=== PATIENT | male | born 1965 | race Caucasian/White ===

== ENCOUNTER 2018-07-26 20:07 | Emergency (ER) | payer BC ==
[2018-07-26] MEDS ORDERED: SODIUM CHLORIDE 0.9% 1,000 ML IV STA (20:52)
--- NOTE | 2018-07-26 20:55 | ED ---
Abdominal Pain HPI - General Chief Complaint: Abdominal Pain Stated Complaint: side pain Time Seen by Provider: 07/26/18 20:47 Source: patient Mode of arrival: ambulatory Limitations: no limitations - History of Present Illness Initial Comments: 53-year-old male patient presents to the emergency department today for evaluation of left lower quadrant abdominal pain. Patient describes the pain as a pressure, squeezing type pain. Patient states he had a small episode of the pain yesterday and then a return today around 5 PM. Patient states that the pain lasted for several hours a presented here for further evaluation. Patient states that the pain is now resolved. States he has been urinating without difficulty denies any hematuria, dysuria, urinary frequency, urinary urgency. Denies any radiation of the pain into his groin or testicles. Denies any constipation or diarrhea. Denies any hematochezia or melena. Denies any fevers or chills. Patient denies any recent rash, shortness breath, chest pain, abdominal pain, nausea, vomiting, back pain, numbness, tingling, dizziness, weakness, headache, visual changes, or any other complaints. - Related Data Home Medications Medication Instructions Recorded Confirmed Aspirin/Calcium Carbonate/Mag 325 mg PO BID PRN 07/26/18 07/26/18 [Bufferin 325 mg Tablet] Previous Rx's Medication Instructions Recorded Hydrocodone/Acetaminophen [[place] 1 tab PO Q6HR PRN #12 tab 07/27/18 5-325] Ibuprofen [Motrin] 600 mg PO Q8HR PRN #30 tab 07/27/18 Tamsulosin HCl [Flomax] 0.4 mg PO DAILY #7 cap 07/27/18 Allergies Allergy/AdvReac Type Severity Reaction Status Date / Time No Known Allergies Allergy Verified 07/26/18 20:33 Review of Systems ROS Statement: Those systems with pertinent positive or pertinent negative responses have been documented in the HPI. ROS Other: All systems not noted in ROS Statement are negative. Past Medical History Past Medical History: No Reported History History of Any Multi-Drug Resistant Organisms: None Reported Past Surgical History: No Surgical Hx Reported Past Psychological History: No Psychological Hx Reported Smoking Status: Never smoker Past Alcohol Use History: None Reported Past Drug Use History: None Reported General Exam Limitations: no limitations General appearance: alert, in no apparent distress, other (This is a well- developed, well-nourished adult male patient in no acute distress. Vital signs upon presentation are temperature 98.5F, pulse 84, respirations 18, blood pressure 170/100, pulse ox 95% on room air.) Eye exam: Present: normal appearance, PERRL, EOMI. Absent: scleral icterus, conjunctival injection, periorbital swelling ENT exam: Present: normal exam, normal oropharynx, mucous membranes moist Respiratory exam: Present: normal lung sounds bilaterally. Absent: respiratory distress, wheezes, rales, rhonchi, stridor Cardiovascular Exam: Present: regular rate, normal rhythm, normal heart sounds. Absent: systolic murmur, diastolic murmur, rubs, gallop, clicks GI/Abdominal exam: Present: soft, normal bowel sounds. Absent: distended, tenderness, guarding, rebound, rigid Back exam: Present: normal inspection. Absent: CVA tenderness (R), CVA tenderness (L) Neurological exam: Present: alert, oriented X3, CN II-XII intact Psychiatric exam: Present: normal affect, normal mood Skin exam: Present: warm, dry, intact, normal color. Absent: rash Course Vital Signs 07/26/18 07/27/18 20:21 00:22 Temperature 98.5 F 97.6 F Pulse Rate 84 71 Respiratory 18 16 Rate Blood Pressure 170/100 152/98 O2 Sat by Pulse 95 98 Oximetry Medical Decision Making - Medical Decision Making 53-year-old male patient presented to the emergency department today for evaluation of intermittent left-sided abdominal pain. Physical examination is relatively unremarkable. Abdomen was soft and nontender. Patient no flank tenderness. Labs reviewed and did reveal blood in the urine so I did proceed with CT abdomen and pelvis without contrast. There was evidence of a 4 mm obstructing renal stone on the left side. There is some mild hydronephrosis and hydroureter. There is also evidence of a 3 mm left lower lobe nodule and inguinal lymphadenopathy. Patient is informed of these other results and instructed follow-up with his primary care physician for further evaluation. Patient was given Flomax, pain management for management of his kidney stone. He is instructed to strain urine. He is instructed to follow-up with urology for further evaluation. Return parameters were discussed in detail. He verbalizes understanding and agrees with this plan - Lab Data Result diagrams: 07/26/18 21:10 08/28/18 21:10 Lab Results 07/26/18 07/26/18 07/26/18 Range/Units 21:10 21:10 21:10 WBC 10.4 (3.8-10.6) k/uL RBC 4.98 (4.30-5.90) m/uL Hgb 14.7 (13.0-17.5) gm/dL Hct 45.5 (39.0-53.0) % MCV 91.4 (80.0-100.0) fL MCH 29.5 (25.0-35.0) pg MCHC 32.2 (31.0-37.0) g/dL RDW 13.0 (11.5-15.5) % Plt Count 218 (150-450) k/uL Neutrophils % 84 % Lymphocytes % 9 % Monocytes % 6 % Eosinophils % 1 % Basophils % 0 % Neutrophils # 8.7 H (1.3-7.7) k/uL Lymphocytes # 1.0 (1.0-4.8) k/uL Monocytes # 0.6 (0-1.0) k/uL Eosinophils # 0.1 (0-0.7) k/uL Basophils # 0.0 (0-0.2) k/uL Sodium 140 (137-145) mmol/L Potassium 4.3 (3.5-5.1) mmol/L Chloride 108 H (98-107) mmol/L Carbon Dioxide 26 (22-30) mmol/L Anion Gap 6 mmol/L BUN 22 H (9-20) mg/dL Creatinine 0.80 (0.66-1.25) mg/dL Est GFR (CKD-EPI)AfAm >90 (>60 ml/min/1.73 sqM) Est GFR (CKD-EPI)NonAf >90 (>60 ml/min/1.73 sqM) Glucose 115 H (74-99) mg/dL Calcium 9.9 (8.4-10.2) mg/dL Total Bilirubin 0.3 (0.2-1.3) mg/dL AST 23 (17-59) U/L ALT 28 (21-72) U/L Alkaline Phosphatase 55 (38-126) U/L Total Protein 7.1 (6.3-8.2) g/dL Albumin 4.1 (3.5-5.0) g/dL Amylase 58 (30-110) U/L Lipase 104 (23-300) U/L Urine Color Yellow Urine Appearance Clear (Clear) Urine pH 5.0 (5.0-8.0) Ur Specific [place] 1.021 (1.001-1.035) Urine Protein Trace H (Negative) Urine Glucose (UA) 2+ H (Negative) Urine Ketones Negative (Negative) Urine Blood Large H (Negative) Urine Nitrite Negative (Negative) Urine Bilirubin Negative (Negative) Urine Urobilinogen <2.0 (<2.0) mg/dL Ur Leukocyte Esterase Negative (Negative) Urine RBC 55 H (0-5) /hpf Urine WBC 2 (0-5) /hpf Urine Bacteria Rare H (None) /hpf Hyaline Casts 1 (0-2) /lpf Urine Mucus Rare H (None) /hpf - Radiology Data Radiology results: report reviewed, image reviewed KUB x-ray of the abdomen was obtained. Report was reviewed in its entirety. Impression by Dr. Jonas shows some moderate stool in the right side of the abdomen. Nonobstructive bowel gas pattern. No free air. CT abdomen and pelvis without contrast was obtained. Report was reviewed in its entirety. Impression by Dr. Reyna shows approximate 4 mm distal left ureteral calculus just above the level of the left ureterovesical junction with evidence of left obstructive uropathy and mild hydronephrosis. Multiple small nonobstructing bilateral renal calculi. Evidence of right inguinal lymphadenopathy. Left anterior pelvic soft tissue density which may reflect postsurgical changes are possible mild left external iliac lymphadenopathy. Hepatic fatty infiltration. 3 mm left lower lobe nodule partially imaged. Follow-up nonemergent CT chest recommended for further evaluation. Disposition Clinical Impression: Kidney stone on left side, Inguinal lymphadenopathy, Pulmonary nodule Disposition: HOME SELF-CARE Condition: Good Instructions: Kidney Stones (ED), Lymphadenopathy (ED), How to Strain Your Urine (ED), Pulmonary Nodules (ED) Additional Instructions: Take medications as directed. Follow-up with urologist for further evaluation. Follow up with her primary care physician for recheck in 1-2 days. Return here immediately for any new, worsening, or concerning symptoms. Prescriptions: Hydrocodone/Acetaminophen [[place] 5-325] 1 tab PO Q6HR PRN #12 tab PRN Reason: Pain Ibuprofen [Motrin] 600 mg PO Q8HR PRN #30 tab PRN Reason: Pain Tamsulosin HCl [Flomax] 0.4 mg PO DAILY #7 cap Is patient prescribed a controlled substance at d/c from ED?: No Referrals: None,Stated [Primary Care Provider] - 1-2 days Time of Disposition: 00:04
[2018-07-26 21:26] LABS: Basophils % (A) 0 %; Eosinophils # (A) 0.1 k/uL (0-0.7); Eosinophils % (A) 1 %; HCT 45.5 % (39.0-53.0); HGB 14.7 gm/dL (13.0-17.5); Lymphocytes % (A) 9 %; MCH 29.5 pg (25.0-35.0); MCHC 32.2 g/dL (31.0-37.0); MCV 91.4 fL (80.0-100.0); Mean Platelet Volume 6.1; Monocytes # (A) 0.6 k/uL (0-1.0); Monocytes % (A) 6 %; Neutrophils # (A) 8.7 k/uL (1.3-7.7); Neutrophils % (A) 84 %; Platelet Count 218 k/uL (150-450); RBC 4.98 m/uL (4.30-5.90); WBC 10.4 k/uL (3.8-10.6)
[2018-07-26 21:28] LABS: Appearance,Urine Clear (Clear); Bacteria,Urine Rare /hpf; Bilirubin,Urine Negative (Negative); Blood,Urine Large (Negative); Color,Urine Yellow; Glucose,Urine (UA) 2+ (Negative); Hyaline Casts,Urine 1 /lpf (0-2); Ketones,Urine Negative (Negative); Leukocyte Esterase,Urine Negative (Negative); Mucus,Urine Rare /hpf; Nitrite,Urine Negative (Negative); Protein,Urine Trace (Negative); RBC,Urine 55 /hpf (0-5); Specific Gravity,Urine 1.021 (1.001-1.035); Urobilinogen,Urine <2.0 mg/dL (<2.0); WBC,Urine 2 /hpf (0-5)
--- NOTE | 2018-07-26 21:34 | XR ---
EXAMINATION TYPE: XR KUB DATE OF EXAM: 07/26/2018 CLINICAL DATA: 53-year-old male with lower abdominal pain, PHH COMPARISON: None FINDINGS: Lung bases are clear. No evidence for free intraperitoneal air. No dilated small bowel or air-fluid levels. Scattered air and stool seen throughout the colon extendi ng distally into the rectum. Moderate stool in the right side of the abdomen. Multiple pelvic phleboliths. IMPRESSION: Moderate stool in the right side of the abdomen. Nonobstructive bowel gas pattern. No free air.
[2018-07-26 21:42] LABS: ALT 28 U/L (21-72); AST 23 U/L (17-59); Albumin 4.1 g/dL (3.5-5.0); Alkaline Phosphatase 55 U/L (38-126); Amylase 58 U/L (30-110); Anion Gap 6 mmol/L; Blood Urea Nitrogen 22 mg/dL (9-20); Calcium 9.9 mg/dL (8.4-10.2); Carbon Dioxide 26 mmol/L (22-30); Chloride 108 mmol/L (98-107); Glucose 115 mg/dL (74-99); Lipase 104 U/L (23-300); Potassium 4.3 mmol/L (3.5-5.1); Sodium 140 mmol/L (137-145); Total Bilirubin 0.3 mg/dL (0.2-1.3); Total Protein 7.1 g/dL (6.3-8.2)
--- NOTE | 2018-07-26 23:33 | CT ---
EXAM: CT Abdomen and Pelvis Without Intravenous Contrast CLINICAL HISTORY: Reason: Pain TECHNIQUE: Axial computed tomography images of the abdomen and pelvis without intravenous contrast. CTDI is 14.2 mGy and DLP is 731 mGy-cm. This CT exam was performed using one or more of the following dose reduction techniques: automated exposure control, adjustment of the mA and/or kV according to patient size, and/or use of iterative reconstruction technique. COMPARISON: None available FINDINGS: Lung bases: 3 mm left lower lobe pulmonary nodule partially imaged in the hemithorax. ABDOMEN: Liver: Mild hepatic fatty infiltration. Gallbladder and bile ducts: No radiopaque gallstones. Pancreas: Pancreas is unremarkable. Spleen: Spleen is unremarkable. Adrenals: No adrenal masses. Kidneys and ureters: Kidneys are of normal size bilaterally. Multiple small nonobstructing bilateral renal calculi. Left perinephric and mild periureteral stranding. Mild left hydronephrosis and hydroureter with evidence of approximately 4 mm distal left ureteral calculus identified just above level of left ureterovesical junction. Stomach and bowel: Stomach is nondistended limiting gastric evaluation. No evidence of bowel obstruction or pneumoperitoneum. Scattered colonic diverticulosis. PELVIS: Appendix: Normal-appearing appendix identified in the right lower quadrant at level of upper pelvis. Bladder: Urinary bladder is unremarkable. No bladder calculi. Reproductive: Unremarkable as visualized. ABDOMEN and PELVIS: Intraperitoneal space: See above. Bones/joints: Prominent hypertrophic degenerative changes involving the lower thoracic and lumbar spine. Moderate T10 and T11 vertebral compression fractures which are of indeterminate age but have probably chronic appearance. No dislocation. Soft tissues: Very small fat-containing umbilical hernia. Small focal soft tissue density with mild stranding identified anterior to the left external iliac vessels measuring approximately 1.7 x 2.7 cm which may reflect post surgical changes related to prior hernia repair or possible mild external iliac lymphadenopathy. Evidence of right inguinal lymphadenopathy with partially imaged enlarged right inguinal lymph node measuring 2.5 x 3.6 cm. Vasculature: No abdominal aortic aneurysm. Lymph nodes: See above. IMPRESSION: Approximately 4 mm distal left ureteral calculus just above level of left ureterovesical junction with evidence of left obstructive uropathy and mild hydronephrosis. Multiple small nonobstructing bilateral renal calculi. Evidence of right inguinal lymphadenopathy. Left anterior pelvic soft tissue density which may reflect postsurgical changes or possible mild left external iliac lymphadenopathy. Hepatic fatty infiltration. 3 mm left lower lobe a nodule partially imaged. Follow-up nonemergent CT chest recommended for further evaluation. [employer] 07/26/18 23:47 Verify Receipt Verified receipt with DONOVAN SCRUGGS in the ER for BYRON RÍOS on 07/26 23:47 (-04:00)
[2018-07-26] MEDS ORDERED: TAMSULOSIN 0.4 MG CAP.ER.24H PO STA (23:59)
[2018-07-27] MEDS ORDERED: ACET/COD 300 MG/30 MG STARTER PACK 6 TAB BTL PO STA
[2018-07-27] MEDS ORDERED: IBUPROFEN 600 MG STARTER PACK 4 TAB BTL PO STA
[2018-07-27 00:24] VITALS: BP 152/98; PULSE 71; RESP 16; TEMP 97.6
== END 2018-07-27 00:20 | disposition home or self-care (01) ==
LOC: EC 20:07
DX: N13.2 Hydronephrosis with renal and ureteral calculous obstruction (principal); R59.0 Localized enlarged lymph nodes; R91.1 Solitary pulmonary nodule
CPT/HCPCS: 36415; 74018; 74176; 80053; 81001; 82150; 83690; 85025; 96360; 96361; 99284

== ENCOUNTER 2023-02-18 08:55 | Observation (INO) | payer BC ==
[2023-02-18] MEDS ORDERED: SODIUM CHLORIDE 0.9% 500 ML 500 ML IV ONE (09:24)
[2023-02-18] MEDS ORDERED: ACETAMINOPHEN TAB 325 MG TAB PO STA (09:24)
[2023-02-18 09:57] LABS: Basophils % (A) 0 %; Eosinophils # (A) 0.1 k/uL (0-0.7); Eosinophils % (A) 1 %; HCT 43.9 % (39.0-53.0); HGB 14.9 gm/dL (13.0-17.5); Lymphocytes # (A) 0.6 k/uL (1.0-4.8); Lymphocytes % (A) 4 %; MCH 30.1 pg (25.0-35.0); MCV 88.5 fL (80.0-100.0); Mean Platelet Volume 7.5; Monocytes # (A) 0.5 k/uL (0-1.0); Monocytes % (A) 4 %; Neutrophils % (A) 91 %; Platelet Count 211 k/uL (150-450); RBC 4.96 m/uL (4.30-5.90); RDW 13.5 % (11.5-15.5); WBC 15.4 k/uL (3.8-10.6)
[2023-02-18 10:14] LABS: Appearance,Urine Clear (Clear); Bilirubin,Urine Negative (Negative); Blood,Urine Small (Negative); Color,Urine Yellow; Glucose,Urine (UA) Negative (Negative); Ketones,Urine 2+ (Negative); Leukocyte Esterase,Urine Negative (Negative); Mucus,Urine Occasional /hpf; Nitrite,Urine Negative (Negative); PH, Urine 5.5 (5.0-8.0); Protein,Urine 2+ (Negative); RBC,Urine 5 /hpf (0-5); Specific Gravity,Urine 1.036 (1.001-1.035); Squamous Epithelial Cell,Urine <1 /hpf (0-4); Urobilinogen,Urine <2.0 mg/dL (<2.0); WBC,Urine 1 /hpf (0-5)
--- NOTE | 2023-02-18 10:15 | ED ---
Male Urogenital HPI - General Chief complaint: Urogenital Stated complaint: R Side Abd Pain Time Seen by Provider: 02/18/23 09:09 Source: patient, RN notes reviewed Mode of arrival: ambulatory Limitations: no limitations - History of Present Illness Initial comments: This a 57-year-old male presents emergency Department chief complaint of right- sided abdominal pain, urinary frequency and dribbling. Patient states that he's had kidney stones in the past. He states is not feels similar he states that he can only a small amount of urine out with denies any associated pain. Patient states he felt like he had a fever at home. Patient denies any chest pain or shortness of breath no cough or cold like symptoms. - Related Data Home Medications Medication Instructions Recorded Confirmed No Known Home Medications 02/18/23 02/18/23 Allergies Allergy/AdvReac Type Severity Reaction Status Date / Time No Known Allergies Allergy Verified 02/18/23 09:41 Review of Systems ROS Statement: Those systems with pertinent positive or pertinent negative responses have been documented in the HPI. ROS Other: All systems not noted in ROS Statement are negative. Past Medical History Past Medical History: No Reported History History of Any Multi-Drug Resistant Organisms: None Reported Past Surgical History: No Surgical Hx Reported Past Psychological History: No Psychological Hx Reported Smoking Status: Never smoker Past Alcohol Use History: None Reported Past Drug Use History: None Reported General Exam Limitations: no limitations General appearance: alert, in no apparent distress Head exam: Present: atraumatic, normocephalic, normal inspection Eye exam: Present: normal appearance, PERRL, EOMI. Absent: scleral icterus, conjunctival injection, periorbital swelling ENT exam: Present: normal exam, normal oropharynx, mucous membranes moist Neck exam: Present: normal inspection, full ROM. Absent: tenderness, meningismus, lymphadenopathy Respiratory exam: Present: normal lung sounds bilaterally. Absent: respiratory distress, wheezes, rales, rhonchi, stridor Cardiovascular Exam: Present: normal rhythm, tachycardia, normal heart sounds. Absent: systolic murmur, diastolic murmur, rubs, gallop, clicks GI/Abdominal exam: Present: soft, tenderness, normal bowel sounds. Absent: distended, guarding, rebound, rigid Back exam: Absent: CVA tenderness (R), CVA tenderness (L) Course Vital Signs 02/18/23 02/18/2323 08:58 10:00 12:35 Temperature 99.7 F H 98.7 F 99.0 F Pulse Rate 101 H 93 90 Respiratory 18 18 16 Rate Blood Pressure 182/97 129/93 140/91 O2 Sat by Pulse 97 94 L 95 Oximetry Medical Decision Making - Medical Decision Making Was pt. sent in by a medical professional or institution (, NEO, POLLUTION CONTROL TECHNICIAN, urgent c are, hospital, or intermediate...) When possible be specific @ -No Did you speak to anyone other than the patient for history (EMS, parent, family, police, friend...)? What history was obtained from this source @ -No Did you review nursing and triage notes (agree or disagree)? Why? @ -I reviewed and agree with nursing and triage notes Were old charts reviewed (outside hosp., previous admission, EMS record, old EKG, old radiological studies, urgent care reports/EKG's, intermediate records)? Report findings @ -No old charts were reviewed Differential Diagnosis (chest pain, altered mental status, abdominal pain women, abdominal pain men, vaginal bleeding, weakness, fever, dyspnea, syncope, headache, dizziness, GI bleed, back pain, seizure, CVA, palpatations, mental health, musculoskeletal)? @ -Differential Abdominal Pain Men: Appendicitis, cholecystitis, diverticulosis, ischemic bowel, pancreatitis, hepatitis, UTI, gastroenteritis, AAA, incarcerated hernia, bowel obstruction, constipation, inflammatory bowel, hepatitis, peptic ulcer disease, splenic infarction, perforated viscus, testicular torsion, this is not meant to be an all-inclusive list EKG interpreted by me (3pts min.). @ -None X-rays interpreted by me (1pt min.). @ -None done CT interpreted by me (1pt min.). @ -CT the abdomen and pelvis shows obstructing right UVJ stone, mild that stranding of the ureter, kidney U/S interpreted by me (1pt. min.). @ -None done What testing was considered but not performed or refused? (CT, X-rays, U/S, labs)? Why? @ -None What meds were considered but not given or refused? Why? @ -None Did you discuss the management of the patient with other professionals (prof jaydens i.e. , NEO, POLLUTION CONTROL TECHNICIAN, lab, RT, psych nurse, social sciences chair, medical collections, teacher, customer service officer, case management social worker)? Give summary @ -dr souza urology who recommended the patient to be started on IV antibiotics, nothing by mouth diet, admission for possible procedure Was smoking cessation discussed for >3mins.? @ -No Was critical care preformed (if so, how long)? @ -No Were there social determinants of health that impacted care today? How? (Homelessness, low income, unemployed, alcoholism, drug addiction, transportation, low edu. Level, literacy, decrease access to med. care, fpc, r ehab)? @ -No Was there de-escalation of care discussed even if they declined (Discuss DNR or withdrawal of care, Hospice)? DNR status @ -No What co-morbidities impacted this encounter? (DM, HTN, Smoking, COPD, CAD, Cancer, CVA, ARF, Chemo, Hep., AIDS, mental health diagnosis, sleep apnea, morbid obesity)? @ -None Was patient admitted / discharged? Hospital course, mention meds given and route, prescriptions, significant lab abnormalities, going to OR and other pertinent info. @ -[Admitted patient has obstructing UVJ stone patient does have mild leukocytosis, fever noted with that stranding patient was placed on IV antibiotics, IV fluids, pain control and admitted Undiagnosed new problem with uncertain prognosis? @ -No Drug Therapy requiring intensive monitoring for toxicity (Heparin, Nitro, Insulin, Cardizem)? @ -No Were any procedures done? @ -No Diagnosis/symptom? @ -Obstructing right UVJ stone Acute, or Chronic, or Acute on Chronic? @ -Acute Uncomplicated (without systemic symptoms) or Complicated (systemic symptoms)? @ -[Complicated Side effects of treatment? @ -No Exacerbation, Progression, or Severe Exacerbation? @ -No Poses a threat to life or bodily function? How? (Chest pain, [place], [place], pneumonia, PE, COPD, DKA, ARF, appy, cholecystitis, CVA, Diverticulitis, Homicidal, Suicidal, threat to staff... and all critical care pts) @ -No - Lab Data Result diagrams: 02/18/23 09:40 02/18/23 09:40 Lab Results 02/18/23 02/18/23 02/18/23 Range/Units 09:40 09:40 09:40 WBC 15.4 H (3.8-10.6) k/uL RBC 4.96 (4.30-5.90) m/uL Hgb 14.9 (13.0-17.5) gm/dL Hct 43.9 (39.0-53.0) % MCV 88.5 (80.0-100.0) fL MCH 30.1 (25.0-35.0) pg MCHC 34.0 (31.0-37.0) g/dL RDW 13.5 (11.5-15.5) % Plt Count 211 (150-450) k/uL MPV 7.5 Neutrophils % 91 % Lymphocytes % 4 % Monocytes % 4 % Eosinophils % 1 % Basophils % 0 % Neutrophils # 14.0 H (1.3-7.7) k/uL Lymphocytes # 0.6 L (1.0-4.8) k/uL Monocytes # 0.5 (0-1.0) k/uL Eosinophils # 0.1 (0-0.7) k/uL Basophils # 0.0 (0-0.2) k/uL Sodium 136 L (137-145) mmol/L Potassium 4.5 (3.5-5.1) mmol/L Chloride 102 (98-107) mmol/L Carbon Dioxide 26 (22-30) mmol/L Anion Gap 8 mmol/L BUN 19 (9-20) mg/dL Creatinine 1.20 (0.66-1.25) mg/dL Est GFR (CKD-EPI)AfAm 78 (>60 ml/min/1.73 sqM) Est GFR (CKD-EPI)NonAf 67 (>60 ml/min/1.73 sqM) Glucose 128 H (74-99) mg/dL Calcium 9.0 (8.4-10.2) mg/dL Total Bilirubin 0.7 (0.2-1.3) mg/dL AST 22 (17-59) U/L ALT 20 (4-49) U/L Alkaline Phosphatase 78 (38-126) U/L Total Protein 7.0 (6.3-8.2) g/dL Albumin 4.0 (3.5-5.0) g/dL Urine Color Yellow Urine Appearance Clear (Clear) Urine pH 5.5 (5.0-8.0) Ur Specific [place] 1.036 H (1.001-1.035) Urine Protein 2+ H (Negative) Urine Glucose (UA) Negative (Negative) Urine Ketones 2+ H (Negative) Urine Blood Small H (Negative) Urine Nitrite Negative (Negative) Urine Bilirubin Negative (Negative) Urine Urobilinogen <2.0 (<2.0) mg/dL Ur Leukocyte Esterase Negative (Negative) Urine RBC 5 (0-5) /hpf Urine WBC 1 (0-5) /hpf Ur Squamous Epith Cells <1 (0-4) /hpf Urine Mucus Occasional H (None) /hpf Disposition Clinical Impression: Hydronephrosis, Urinary tract obstruction due to kidney stone Disposition: ADMITTED IP TO THIS [facility] Condition: Stable Is patient prescribed a controlled substance at d/c from ED?: No Time of Disposition: 12:48
[2023-02-18 10:16] LABS: Potassium 4.5 mmol/L (3.5-5.1); Total Bilirubin 0.7 mg/dL (0.2-1.3)
--- NOTE | 2023-02-18 11:13 | CT ---
EXAMINATION TYPE: CT abdomen pelvis w con CT DLP: 1331.4 mGycm, Automated exposure control for dose reduction was used. DATE OF EXAM: 02/18/2023 10:59 AM COMPARISON: CT abdomen pelvis most recent from 07/26/2018 . CLINICAL INDICATION:Male, 57 years old with history of rlq pain; RLQ pain that started today TECHNIQUE: Standard CT of the abdomen and pelvis following the administration of 100 cc of Isovue 3 00 IV contrast material. Coronal and sagittal reformats were performed. FINDINGS: LOWER CHEST: Posterior dependent subsegmental atelectasis is noted. ABDOMEN LIVER: Subcentimeter hypodensity within the right hepatic dome which is too small to characterize but likely represents a benign cyst. GALLBLADDER AND BILE DUCTS: Unremarkable. PANCREAS: Unremarkable. SPLEEN: Unremarkable. ADRENAL GLANDS: Unremarkable. KIDNEYS AND URETERS: Mild right hydroureteronephrosis with an obstructing 8 x 5 mm calculus at the ur eterovesical junction. There is associated right perinephric and periureteral fat stranding. No hydro nephrosis or renal calculi involving the left kidney. No additional renal calculi demonstrated within the right kidney. Contrast system showed within the left collecting system on the delayed phase. Th e kidneys enhance symmetrically. PELVIS BLADDER: Unremarkable REPRODUCTIVE: Prostate is enlarged in size measuring 5.2 cm in transverse dimension. ABDOMEN & PELVIS STOMACH AND BOWEL: Stomach and duodenum are unremarkable. No focal wall thickening or surrounding inf lammatory changes. The appendix is within normal limits. No evidence of bowel obstruction. PERITONEUM: No evidence of pneumoperitoneum or free fluid. VASCULATURE: No evidence of aortic aneurysm. Multiple pelvic phleboliths. MUSCULOSKELETAL: No acute osseous abnormalities. Mild disc degeneration changes are present throughou t the thoracolumbar spine. No hepatic curvature redemonstrated. LYMPH NODES: Few mildly prominent right inguinal lymph nodes measuring up to 1.2 cm short axis, likel y reactive. SOFT TISSUE/ABDOMINAL WALL: Small fat filled umbilical hernia. IMPRESSION: Mild right hydroureteronephrosis with an obstructing 8 x 5 oh meter calculus at the ureterovesical ju nction.
[2023-02-18] MEDS ORDERED: ONDANSETRON 4 MG/2 ML VIAL IVP PRN (11:57)
[2023-02-18] MEDS ORDERED: NALOXONE 0.4 MG/ML 1 ML VIAL IV PRN (11:57)
[2023-02-18] MEDS ORDERED: KETOROLAC 15 MG/ML 1 ML VIAL IVP PRN (11:57)
[2023-02-18] MEDS ORDERED: HYDROmorphone 0.5 MG/0.5 ML SYRINGE IVP PRN (11:57)
[2023-02-18] MEDS: SODIUM CHLORIDE 0.9% 1,000 ML IV SCH ×2 (12:28→21:52)
--- NOTE | 2023-02-18 13:41 | P.GSHP ---
History of Present Illness H&P Date: 02/18/23 Chief Complaint: Right-sided abdominal pain The patient is a 57-year-old male with no reported medical history. He was diagnosed with a kidney stone approximately 5 years ago, which she presumably passed. He presented to the emergency department today with right sided abdom inal pain and right flank pain. He also has had urinary frequency and dribbling for a couple days. He denies any nausea or vomiting. He reports running a low grade fever (up to 100F). No hematuria or dysuria. Leukocytosis present with a WBC of 15.4. Serum creatinine stable at 1.20. Urinalysis positive for protein, ketones, and RBCs. Urine culture pending. Abdomen/pelvis CT with contrast shows an enlarged prostate measuring 5.2 cm in size, mild right hydroureternephrosis with an obstructing 8 x 5 mm calculus at the UVJ. - Constitutional Constitutional: Reports chills, Reports fever - Cardiovascular Cardiovascular: Denies chest pain, Denies shortness of breath - Gastrointestinal Gastrointestinal: Reports abdominal pain, Denies nausea, Denies vomiting - Genitourinary (Female) Genitourinary: Reports flank pain, Reports urinary frequency, Denies dysuria, Denies hematuria Past Medical History Past Medical History: No Reported History History of Any Multi-Drug Resistant Organisms: None Reported Past Surgical History: No Surgical Hx Reported Past Psychological History: No Psychological Hx Reported Smoking Status: Never smoker Past Alcohol Use History: None Reported Past Drug Use History: None Reported Medications and Allergies Home Medications Medication Instructions Recorded Confirmed Type No Known Home Medications 02/18/23 02/18/23 History Allergies Allergy/AdvReac Type Severity Reaction Status Date / Time No Known Allergies Allergy Verified 02/18/23 09:41 Surgical - Exam Vital Signs Temp Pulse Resp BP Pulse Ox 99.7 F H 101 H 18 182/97 97 02/18/23 08:58 02/18/23 08:58 02/18/23 08:58 02/18/23 08:58 02/18/23 08:58 Results - Labs 02/18/23 09:40 02/18/23 09:40 Abnormal Lab Results - Last 24 Hours (Table) 02/18/23 02/18/23 02/18/23 Range/Units 09:40 09:40 09:40 WBC 15.4 H (3.8-10.6) k/uL Neutrophils # 14.0 H (1.3-7.7) k/uL Lymphocytes # 0.6 L (1.0-4.8) k/uL Sodium 136 L (137-145) mmol/L Glucose 128 H (74-99) mg/dL Ur Specific [place] 1.036 H (1.001-1.035) Urine Protein 2+ H (Negative) Urine Ketones 2+ H (Negative) Urine Blood Small H (Negative) Urine Mucus Occasional H (None) /hpf Diabetes panel 02/18/23 Range/Units 09:40 Sodium 136 L (137-145) mmol/L Potassium 4.5 (3.5-5.1) mmol/L Chloride 102 (98-107) mmol/L Carbon Dioxide 26 (22-30) mmol/L BUN 19 (9-20) mg/dL Creatinine 1.20 (0.66-1.25) mg/dL Glucose 128 H (74-99) mg/dL Calcium 9.0 (8.4-10.2) mg/dL AST 22 (17-59) U/L ALT 20 (4-49) U/L Alkaline Phosphatase 78 (38-126) U/L Total Protein 7.0 (6.3-8.2) g/dL Albumin 4.0 (3.5-5.0) g/dL Calcium panel 02/18/23 Range/Units 09:40 Calcium 9.0 (8.4-10.2) mg/dL Albumin 4.0 (3.5-5.0) g/dL Pituitary panel 02/18/23 Range/Units 09:40 Sodium 136 L (137-145) mmol/L Potassium 4.5 (3.5-5.1) mmol/L Chloride 102 (98-107) mmol/L Carbon Dioxide 26 (22-30) mmol/L BUN 19 (9-20) mg/dL Creatinine 1.20 (0.66-1.25) mg/dL Glucose 128 H (74-99) mg/dL Calcium 9.0 (8.4-10.2) mg/dL Adrenal panel 02/18/23 Range/Units 09:40 Sodium 136 L (137-145) mmol/L Potassium 4.5 (3.5-5.1) mmol/L Chloride 102 (98-107) mmol/L Carbon Dioxide 26 (22-30) mmol/L BUN 19 (9-20) mg/dL Creatinine 1.20 (0.66-1.25) mg/dL Glucose 128 H (74-99) mg/dL Calcium 9.0 (8.4-10.2) mg/dL Total Bilirubin 0.7 (0.2-1.3) mg/dL AST 22 (17-59) U/L ALT 20 (4-49) U/L Alkaline Phosphatase 78 (38-126) U/L Total Protein 7.0 (6.3-8.2) g/dL Albumin 4.0 (3.5-5.0) g/dL - Imaging CT scan - abdomen: report reviewed, image reviewed CT scan - pelvis: report reviewed, image reviewed Assessment and Plan Assessment: The patient has been running low-grade fevers with a T-max of 99.7F in the emergency room and appears flushed. He has received 2 grams of Rocephin in the emergency department. The patient reports having a possible kidney stone approximately 5 years ago. He thinks he may have passed spontaneously. The patient has never seen a urologist. No history of cancer. Surgical history includes a left inguinal hernia repair. The patient's abdominal/pelvis CT scan has been reviewed by Dr. Rome. The patient will proceed to the OR later this afternoon for a cystoscopy, right ureteroscopy with laser lithotripsy and possible stent insertion. (1) Hydronephrosis Current Visit: Yes Status: Acute Code(s): N13.30 - UNSPECIFIED HYDRONEPHROSIS SNOMED Code(s): 56817862 (2) Calculus of ureterovesical junction (UVJ) Current Visit: Yes Status: Acute Code(s): N20.1 - CALCULUS OF URETER SNOMED Code(s): 376145447 Plan: - OR this afternoon with Dr. Rome for cystoscopy, right ureteroscopy with laser lithotripsy and possible stent insertion. The procedure was reviewed in detail with the patient and his sister. They were made aware of potential risks, which include anesthesia, bleeding, infection, inability to successfully remove the calculus, and ureteral injury. The need to place a ureteral stent was discussed. It was explained to the patient that his leukocytosis and borderline fever are of some concern, and that ureteroscopic stone manipulation would not be performed in the presence of infection. I intend to proceed with ureteroscopic removal of the calculus as long as it remains uncomplicated. If it becomes complicated there is any evidence of infection, ureteroscopy will be aborted and a stent placed. - Keep Patient NPO - Continue IVF - Continue current pain regimen - Awaiting urine culture Impression and plan of care have been directed as dictated by the signing physician. Nancy Ward nurse practitioner acting as scribe for signing physician. Nancy Ward [facility] Palliative Care/Urology Spectralink [id number] Email: [email or web address] I have personally seen and examined the patient, reviewed the documentation and agree with the assessment and plan as written. Number of minutes spent on the visit: 40. Kaiser Rome MD Time with Patient: Greater than 30
[2023-02-18] MEDS ORDERED: MIDAZOLAM 2 MG/2 ML VIAL ONE (19:50)
[2023-02-18] MEDS ORDERED: fentaNYL (PF) 50 MCG/ML 2 ML AMP ONE (19:50)
[2023-02-18] MEDS ORDERED: LIDOCAINE 2% INJ 20 MG/ML (2 ML VIAL) ONE (19:50)
[2023-02-18] MEDS ORDERED: PROPOFOL 10 MG/ML 20 ML VIAL IV ONE (19:50)
[2023-02-18] MEDS ORDERED: SODIUM CHLORIDE 0.9% 1,000 ML IV ONE (19:55)
[2023-02-18] MEDS ORDERED: IOPAMIDOL-300 50ML BTL MISCELLANE ONE (20:35)
[2023-02-18] MEDS ORDERED: LACTATED RINGERS 1,000 ML IV ONE (20:45)
[2023-02-18] MEDS: TAMSULOSIN 0.4 MG CAP.ER.24H PO SCH (21:51)
--- NOTE | 2023-02-18 22:04 | P.OP ---
Date of Procedure: 02/18/23 Preoperative Diagnosis: Right ureteral calculus Postoperative Diagnosis: Same Procedure(s) Performed: Cystoscopy, right ureteroscopy with Holmium laser lithotripsy and stone basketing, right ureteral stent insertion Anesthesia: GWNE Surgeon: Kaiser Rome Estimated Blood Loss (ml): 5 IV fluids (ml): 900 Pathology: other (Calculus fragments, sent for chemical analysis) Condition: stable Disposition: PACU Indications for Procedure: The patient is a 57-year-old white male admitted with right renal colic due to a 5 x 8 mm right distal ureteral calculus. He now comes for ureteroscopic removal of the calculus. Operative Findings: 5 x 8 mm right distal ureteral calculus, fragmented and removed completely. Description of Procedure: The patient was taken to the operating room and placed in the dorsolithotomy position, with legs supported in Nish stirrups. The external genitalia was prepped and draped sterilely. The 30 lens was used to introduce the 21-American Dunn cystoscopic sheath through the urethra and into the bladder under direct vision. The prostatic urethra showed evidence of mild lateral lobe enlargement. The bladder was examined in its entirety. Both ureteral orifices were normal anatomic location and configuration, and clear urine effluxed from both. No tumors or foreign bodies were seen. The Dunn semirigid ureteroscope was advanced into the bladder, but it was not possible to cannulate the right ureteral orifice. Therefore, a 0.035 inch Glidewire was passed through the ureteroscope. The right ureteral orifice was cannulated, and the Glidewire was advanced up to the right renal pelvis. The Glidewire was backloaded into the cystoscope, which was passed into the bladder. A 4 cm, 15-American balloon dilating catheter was then used to dilate the intramural portion of the ureter. The cystoscope was then removed, and the ureteroscope replaced into the bladder. The right ureteral orifice was cannulated, and the ureteroscope was advanced up to the calculus. The 365 micron Holmium laser probe was passed through the ureteroscope, and lithotripsy was performed. After fragmenting the calculus, all stone fragments were removed using a 1.5-American nitinol basket. Inspection of the ureter showed no evidence of ureteral trauma. The Glidewire was advanced up to the right renal pelvis. The ureteroscope was removed, and the Glidewire was backloaded into the cystoscope, which was passed into the bladder. A 26 cm, 4.8-American double-J ureteral stent was placed over the wire. Proper stent positioning was verified fluoroscopically and endoscopically. The bladder was emptied and the cystoscope removed. The removed stone fragments were sent for chemical analysis. The string was left attached to the stent, and was taped to the penis using a Tegade rm dressing. The patient tolerated the procedure well and was taken to the recovery room in stable condition. [facility] Report: Procedure Acuity: Urgent Stone Size and Location: 5 x 8 mm, right distal ureter Ureteral Dilation: Balloon Dilation Ureteral Access Sheath Used: No Stone Sent for Analysis: Yes All Stones/Fragments Were Removed with a Basket: Yes Complications: No Preoperative Antibiotics Given: Yes Stent Placed: Yes If Stent Placed, Was String Left Attached: Yes If Stent Placed, When is it to be Removed: 1 week Discharge Medications: Tamsulosin, Toradol
[2023-02-19 02:44] VITALS: RESP 16
[2023-02-19 07:41] VITALS: BP 132/72; PULSE 102; TEMP 98.1
[2023-02-19] MEDS: TAMSULOSIN 0.4 MG CAP.ER.24H PO SCH (07:58)
--- NOTE | 2023-02-19 09:43 | FL ---
EXAMINATION TYPE: FL guidance operating room DATE OF EXAM: 02/18/2023 HISTORY: Fluoroscopy time 3.2009 DAP, 15 SEC FL TIME. of fluoroscopy provided. IMPRESSION: 1. Fluoroscopy time.
--- NOTE | 2023-02-19 10:34 | P.DS ---
Providers Date of admission: 02/18/23 11:59 Expected date of discharge: 02/19/23 Attending physician: Kaiser Rome Primary care physician: Stated None - Discharge Diagnosis(es) (1) Hydronephrosis Status: Acute (2) Calculus of ureterovesical junction (UVJ) Status: Acute Hospital Course: The patient is a 57-year-old male with no reported medical history. He was diagnosed with a kidney stone approximately 5 years ago, which he presumably passed. He presented to the emergency department today with right sided abdominal pain and right flank pain. He also has had urinary frequency and dribbling for a couple days. He denies any nausea or vomiting. He reports running a low grade fever (up to 100F). No hematuria or dysuria. Leukocytosis present with a WBC of 15.4. Serum creatinine stable at 1.20. Urinalysis positive for protein, ketones, and RBCs. Urine culture pending. Abdomen/pelvis CT with contrast shows an enlarged prostate measuring 5.2 cm in size, mild right hydroureternephrosis with an obstructing 8 x 5 mm calculus at the UVJ. On 02/18/23 the patient underwent a cystoscopy, right ureteroscopy with holmium laser lithotripsy and stone basketing, right ureteral stent insertion. The patient tolerated the procedure well and was taken to the recovery room in stable condition. POD#1 the patient is able to tolerate a regular diet. He is able to void without difficulty. He reports that his right flank pain is significantly improved. He was instructed to remove his ureteral stent in 1 week, and to follow-up with Dr. Rome in 3 weeks. Impression and plan of care have been directed as dictated by the signing physician. Nancy Ward nurse practitioner acting as scribe for signing physician. Nancy Ward [facility] Palliative Care/Urology Spectralink [phone] Email: [email or web address] I have personally seen and examined the patient, reviewed the documentation and agree with the assessment and plan as written. Number of minutes spent on the visit: 20. Kaiser Rome MD Procedures: Cystoscopy, right ureteroscopy with Holmium laser lithotripsy and stone basketing, right ureteral stent insertion on 02/18/2023. Patient Condition at Discharge: Good Plan - Discharge Summary Discharge Rx Participant: No New Discharge Prescriptions: New Ciprofloxacin HCl [Cipro] 500 mg PO Q12HR #14 tablet Tamsulosin HCl [Flomax] 0.4 mg PO PC-SUPPER #30 capsule Ketorolac [Toradol] 10 mg PO Q6HR PRN #12 tab PRN Reason: Pain Discharge Medication List Ciprofloxacin HCl [Cipro] 500 mg PO Q12HR #14 tablet 02/19/23 [Rx] Ketorolac [Toradol] 10 mg PO Q6HR PRN #12 tab 02/19/23 [Rx] Tamsulosin HCl [Flomax] 0.4 mg PO PC-SUPPER #30 capsule 02/19/23 [Rx] Follow up Appointment(s)/Referral(s): Kaiser Rome MD [STAFF PHYSICIAN] - 3 Weeks (Please call office to make this appointment I could not reach the office.) None,Stated [Primary Care Provider] - 1-2 days Patient Instructions/Handouts: Ciprofloxacin (By mouth), Ketorolac (By mouth), Tamsulosin (By mouth), Kidney Stones (DC), Ureteral Stent Placement (DC) Activity/Diet/Wound Care/Special Instructions: Diet as tolerated. Activity as tolerated. Reassure patient that hematuria is normal and expected while the ureteral stent is in. Patient should remove ureteral stent in 1 week by removing the tape and gently pulling on the string. Discharge Disposition: HOME SELF-CARE
== END 2023-02-19 12:07 | disposition home or self-care (01) ==
LOC: EC 08:55 → 5NMEDONC 11:59 → INTOOBSV 11:59 → 5NMEDONC 14:31 → UNDODISIN 02-19 12:07
PROVIDERS: ADMIT Urology; ATTEND Urology
DX: N13.0 Hydronephrosis with ureteropelvic junction obstruction (principal); J98.11 Atelectasis; N40.0 Benign prostatic hyperplasia without lower urinary tract symptoms; M51.35 Other intervertebral disc degeneration, thoracolumbar region; K42.9 Umbilical hernia without obstruction or gangrene; D72.829 Elevated white blood cell count, unspecified; Z87.442 Personal history of urinary calculi
CPT/HCPCS: 36415; 51798; 74177; 80053; 81001; 82365; 85025; 87040; 87086; 96360; 96361; 96365; 99285